=== PATIENT | female | born 1980 | race Caucasian/White ===

== ENCOUNTER 2019-05-05 10:04 | Emergency (ER) | payer OTHER ==
[~2019-05-05] VITALS: Ht 177.8 cm; Wt 76.8 kg
--- NOTE | 2019-05-05 10:44 | NUR ---
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 PT PLACED IN WC.
--- NOTE | 2019-05-05 11:10 | NUR ---
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
--- NOTE | 2019-05-05 11:41 | NUR ---
PT REAREND AT APPROX 10MPH LAST NIGHT. C/O POSTERIOR NECK PAIN RADIATES ACROSS SHOULDERS WITH BRAYDON HAND/FINGER TINGLING. C-COLLAR PLACED IN TRIAGE, PT ON GURNEY SUPINE AWAITING CERVICAL SPINE CT. CALL LIGHT W/I REACH. NAD NOTED
--- NOTE | 2019-05-05 11:55 | NUR ---
RECEIVED REPORT FROM YASMINE HANSON. ASSUMING CARE AT THIS TIME. PT GOING TO CT.
--- NOTE | 2019-05-05 12:16 | NUR ---
ALL RESULTS ARE BACK AT THIS TIME. CHART UP FOR RECHECK.
[2019-05-05 12:18] VITALS: BP 110/63
== END 2019-05-05 12:53 | disposition home or self-care (01) ==
LOC: ED 12:50
DX: S06.0X0A Concussion without loss of consciousness, initial encounter (principal); S16.1XXA Strain of muscle, fascia and tendon at neck level, initial encounter; V89.0XXA Person injured in unspecified motor-vehicle accident, nontraffic, initial encounter; Y93.89 Activity, other specified; Y92.488 Other paved roadways as the place of occurrence of the external cause; Y99.8 Other external cause status
CPT/HCPCS: 70450; 72125; 99284

== ENCOUNTER → 2020-04-24 | Outpatient (CLI) | payer OTHER ==
[~2020-04-24] MED LIST: OMEP40CA42 PO
== END | disposition home or self-care (01) ==
LOC: PETCFH 07:34
PROVIDERS: ATTEND Internal Medicine Hematology & Oncology
DX: C16.9 Malignant neoplasm of stomach, unspecified (principal); J34.1 Cyst and mucocele of nose and nasal sinus
CPT/HCPCS: 78815; A9552

== ENCOUNTER 2020-04-25 07:38 | Day surgery (SDC) | payer OTHER ==
[~2020-04-25] VITALS: Ht 177.8 cm; Wt 71.8 kg
[2020-04-25 08:23] VITALS: BP 106/71
[2020-04-25] MEDS ORDERED: VANCOMYCIN PMX 1GM/200ML 200 ML IV ONE (08:30)
[2020-04-25] MEDS ORDERED: PLEASE ENTER HEIGHT AND WEIGHT MC SCH (08:30)
[2020-04-25] MEDS ORDERED: SODIUM CHLORIDE 0.9% 1,000 ML IV SCH (08:30)
[2020-04-25] MEDS ORDERED: OMEP40CA42 PO (08:44)
[2020-04-25] MEDS ORDERED: LIDOCAINE 1%, 20ML ONE (09:49)
[2020-04-25] MEDS ORDERED: LIDOCAINE 1%, 10ML ONE (09:49)
[2020-04-25] MEDS ORDERED: MIDAZOLAM 1 MG/ML, 5ML ONE (09:50)
[2020-04-25] MEDS ORDERED: FENTANYL PF 100 MCG/2ML ONE (09:50)
[2020-04-25] MEDS ORDERED: NALOXONE 1 MG/ML, 2ML ONE (09:50)
[2020-04-25] MEDS ORDERED: FLUMAZENIL 0.1 MG/1 ML, 5ML ONE (09:50)
[2020-04-25] MEDS ORDERED: ACETAMINOPHEN 325 MG TABLET ONE (12:06)
[2020-04-25] MEDS ORDERED: ACETAMINOPHEN 325 MG TABLET PO ONE (12:30)
== END 2020-04-25 12:40 | disposition home or self-care (01) ==
LOC: OUT 07:38
PROVIDERS: ATTEND Internal Medicine Hematology & Oncology
DX: C16.9 Malignant neoplasm of stomach, unspecified (principal); Z88.0 Allergy status to penicillin
CPT/HCPCS: 36561; 76937; 77001; 99156; 99157; C1769; C1788; C1894; J1642; J2250; J3010; J3370; J7030; J2310

== ENCOUNTER → 2020-07-19 | Outpatient (CLI) | payer OTHER | END | disposition home or self-care (01) | LOC: STAR 10:35 | PROVIDERS: ATTEND Surgery | DX: Z20.822 Contact with and (suspected) exposure to COVID-19 (principal) | CPT/HCPCS: U0003 ==

== ENCOUNTER 2020-07-25 07:00 | Inpatient (IN) | payer OTHER ==
[~2020-07-25] VITALS: Ht 180.3 cm; Wt 78.9 kg
[2020-07-25] MEDS ORDERED: LIDOCAINE-MPF 1%, 2ML ONE (11:48)
[2020-07-25 11:49] VITALS: BP 104/72
[2020-07-25] MEDS ORDERED: BUPIVACAINE/PF 0.5% ONE (11:58)
[2020-07-25] MEDS ORDERED: EPINEPHRINE 1 MG/ML, 1ML ONE (11:58)
[2020-07-25] MEDS ORDERED: CHLORHEXIDINE 15 ML UDC ONE (12:06)
[2020-07-25] MEDS ORDERED: KETAMINE 10 MG/ML, 20ML ONE (12:07)
[2020-07-25 12:08] LABS: HCG UR SG 1.021 (1.003-1.030)
[2020-07-25] MEDS ORDERED: FENTANYL PF 100 MCG/2ML ONE ×2 (12:23→15:43)
[2020-07-25] MEDS ORDERED: MIDAZOLAM 1 MG/ML, 2ML ONE (12:23)
[2020-07-25] MEDS ORDERED: LIDOCAINE-MPF 1%, 2ML INFIL ONE (12:30)
[2020-07-25] MEDS ORDERED: LACTATED RINGERS 1,000 ML IV SCH (12:30)
[2020-07-25] MEDS ORDERED: CHLORHEXIDINE 15 ML UDC PO ONE (12:30)
[2020-07-25] MEDS ORDERED: ROCURONIUM 10 MG/ML,10ML ONE (12:31)
[2020-07-25] MEDS ORDERED: CEFAZOLIN 1,000 MG ONE (12:31)
[2020-07-25] MEDS ORDERED: PROPOFOL 10 MG/ML, 20ML ONE (12:31)
[2020-07-25] MEDS ORDERED: ONDANSETRON 2MG/ML, 2ML ONE (12:31)
[2020-07-25] MEDS ORDERED: NEOSTIGMINE 1 MG/ML, 10ML ONE (12:31)
[2020-07-25] MEDS ORDERED: DEXAMETHASONE 4 MG/ML, 1ML ONE (12:31)
[2020-07-25] MEDS ORDERED: PHENYLEPHRINE 10 MG/ML ONE (12:31)
[2020-07-25] MEDS ORDERED: GLYCOPYRROLATE 0.2MG/1ML, 5ML ONE (12:31)
[2020-07-25] MEDS ORDERED: SUCCINYLCHOLINE 20 MG/ML, 10ML ONE (12:31)
[2020-07-25] MEDS ORDERED: HYDROmorphone 1 MG/ML, 1ML INJ ONE ×3 (12:45→15:55)
[2020-07-25] MEDS ORDERED: LABETALOL 5MG/ML, 20ML IV PRN (14:30)
[2020-07-25] MEDS ORDERED: DIPHENHYDRAMINE 50 MG/ML, 1ML IVPush PRN (14:30)
[2020-07-25] MEDS ORDERED: ONDANSETRON 2MG/ML, 2ML IVPush PRN ×2 (14:30→16:00)
[2020-07-25] MEDS ORDERED: hydrALAzine 20 MG/ML, 1ML IV PRN ×2 (14:30→16:00)
[2020-07-25] MEDS ORDERED: METOPROLOL 1 MG/ML, 5ML IV PRN (14:30)
[2020-07-25] MEDS ORDERED: PROMETHAZINE 25 MG/ML, 1ML IVPush PRN (14:30)
[2020-07-25] MEDS ORDERED: OXYcodone 5 MG/5 ML ORAL.SOL UDC PO PRN (14:30)
[2020-07-25] MEDS ORDERED: ALBUTEROL SULFATE 2.5 MG/3 ML NPPB PRN (14:30)
[2020-07-25] MEDS ORDERED: FENTANYL PF 100 MCG/2ML IV PRN (14:30)
[2020-07-25] MEDS ORDERED: EPHEDRINE 50 MG/ML, 1ML IVPush PRN (14:30)
[2020-07-25] MEDS ORDERED: METOCLOPRAMIDE 5 MG/ML, 2ML IVPush PRN (14:30)
[2020-07-25] MEDS ORDERED: ACETAMINOPHEN 325 MG TABLET PO PRN (14:30)
[2020-07-25] MEDS ORDERED: MEPERIDINE/PF 25MG/0.5ML IVPush PRN (14:30)
[2020-07-25] MEDS ORDERED: DIAZEPAM 5 MG/ML, 2ML IVPush PRN (14:30)
[2020-07-25] MEDS ORDERED: HALOPERIDOL 5 MG/ML IV PRN (14:30)
[2020-07-25] MEDS ORDERED: OXYcodone 5 MG/5 ML ORAL.SOL UDC ONE (15:22)
[2020-07-25] MEDS: HYDROmorphone 1 MG/ML, 1ML INJ IVPush PRN ×4 (15:25→16:05)
[2020-07-25] MEDS ORDERED: ACETAMINOPHEN 650 MG/20.3 ML UDC ONE (15:54)
[2020-07-25] MEDS ORDERED: KETOROLAC 30 MG/1 ML ONE (15:55)
[2020-07-25] MEDS ORDERED: HYDROmorphone PCA 30 MG/30 ML IV PRN (16:00)
[2020-07-25] MEDS ORDERED: LORazepam 2 MG/ML, 1ML IV PRN (16:00)
[2020-07-25] MEDS ORDERED: ACETAMINOPHEN 650 MG/20.3 ML UDC JT PRN (16:00)
[2020-07-25] MEDS ORDERED: DIPHENHYDRAMINE 50 MG/ML, 1ML IV PRN (16:00)
[2020-07-25] MEDS ORDERED: SODIUM CHLORIDE 0.9%, 500ML IVBOLUS PRN (16:00)
[2020-07-25] MEDS ORDERED: ENALAPRILAT 1.25 MG/ML, 2ML IV PRN (16:00)
[2020-07-25] MEDS: KETOROLAC 30 MG/1 ML IV PRN (16:20)
[2020-07-25 17:35] VITALS: BP 106/69
[2020-07-25 19:25] VITALS: BP 110/73
[2020-07-25] MEDS: SODIUM CHLORIDE 0.9% 1,000 ML IV SCH (19:56)
[2020-07-25] MEDS: CEFAZOLIN PMX 1GM/50ML 50 ML IVPB SCH (20:27)
[2020-07-26 03:55] VITALS: BP 106/66
[2020-07-26] MEDS: KETOROLAC 30 MG/1 ML IV PRN ×2 (04:03→23:45)
[2020-07-26] MEDS: CEFAZOLIN PMX 1GM/50ML 50 ML IVPB SCH (04:28)
[2020-07-26 05:37] LABS: BASOPHILS % (AUTO) 0 % (0-1); EOSINOPHILS % (AUTO) 0 % (1-7); LYMPHOCYTES % (AUTO) 5 % (22-44); MEAN CORPUSCULAR HEMOGLOBIN 29.3 pg (27.0-34.8); MEAN CORPUSCULAR HGB CONC 32.6 g/dL (32.4-35.8); MONOCYTES % (AUTO) 7 % (2-9); NEUTROPHILS % (AUTO) 88 % (42-75); PLATELET COUNT 231 x10^3/uL (130-400); RED BLOOD COUNT 2.99 x10^6/uL (3.82-5.3); RED CELL DISTRIBUTION WIDTH 18.5 % (9.6-15.2)
[2020-07-26 05:43] LABS: MD NO
[2020-07-26 05:46] LABS: ALANINE AMINOTRANSFERASE 57 U/L (12-78); ANION GAP 6 mmol/L (5-15); CALCIUM 8.3 mg/dL (8.5-10.1); CHLORIDE 106 mmol/L (98-107); CREATININE 0.68 mg/dL (0.55-1.02)
[2020-07-26 05:48] LABS: ALKALINE PHOSPHATASE 65 U/L (45-117); BILIRUBIN,TOTAL 0.3 mg/dL (0.2-1.0)
[2020-07-26] MEDS: SODIUM CHLORIDE 0.9% 1,000 ML IV SCH ×2 (06:30→16:28)
[2020-07-26 07:23] VITALS: BP 99/63
--- NOTE | 2020-07-26 12:07 | NUR ---
TF RECOMMENDATION: if no PO, goal is Jevity 1.2 @ 70 ml/hr Recommend start at 10 ml/hr and increase 10 ml/hr q 10-12 hours as tolerated Addendum: 07/26/20 at [address] Amended: Links added.
[2020-07-26 13:10] VITALS: BP 96/60
[2020-07-26] MEDS: HEPARIN 5,000 UNITS/ML, 1ML SQ SCH (16:39)
[2020-07-26 20:49] VITALS: BP 108/71
[2020-07-27] MEDS: SODIUM CHLORIDE 0.9% 1,000 ML IV SCH ×3 (01:25→21:59)
[2020-07-27] MEDS: HEPARIN 5,000 UNITS/ML, 1ML SQ SCH ×4 (01:25→23:43)
[2020-07-27 03:15] VITALS: BP 98/62
[2020-07-27] MEDS: KETOROLAC 30 MG/1 ML IV PRN ×4 (05:45→23:43)
[2020-07-27 07:07] VITALS: BP 95/58
[2020-07-27] MEDS ORDERED: OXYcodone 5 MG/5 ML ORAL.SOL UDC JT PRN (11:30)
[2020-07-27] MEDS ORDERED: MORPHINE SULFATE 4 MG/ML, 1ML IVPush PRN (12:00)
[2020-07-27] MEDS: ACETAMINOPHEN 650 MG/20.3 ML UDC JT SCH ×3 (12:16→23:42)
[2020-07-27 13:17] VITALS: BP 103/65
[2020-07-27 20:10] VITALS: BP 98/66
[2020-07-28 01:02] VITALS: BP 98/64
[2020-07-28] MEDS: ACETAMINOPHEN 650 MG/20.3 ML UDC JT SCH ×3 (06:23→18:23)
[2020-07-28] MEDS: KETOROLAC 30 MG/1 ML IV PRN ×3 (06:23→19:48)
[2020-07-28 06:26] LABS: BASOPHILS % (AUTO) 1 % (0-1); EOSINOPHILS % (AUTO) 4 % (1-7); LYMPHOCYTES % (AUTO) 29 % (22-44); MEAN CORPUSCULAR HEMOGLOBIN 29.5 pg (27.0-34.8); MEAN CORPUSCULAR HGB CONC 32.8 g/dL (32.4-35.8); MEAN PLATELET VOLUME 8.6 fL (7.4-10.4); MONOCYTES % (AUTO) 9 % (2-9); NEUTROPHILS % (AUTO) 57 % (42-75); PLATELET COUNT 189 x10^3/uL (130-400); RED BLOOD COUNT 2.64 x10^6/uL (3.82-5.3); RED CELL DISTRIBUTION WIDTH 18.5 % (9.6-15.2)
[2020-07-28 06:28] LABS: MD NO
[2020-07-28 06:35] LABS: ANION GAP 3 mmol/L (5-15); CALCIUM 7.7 mg/dL (8.5-10.1); CHLORIDE 111 mmol/L (98-107); CREATININE 0.42 mg/dL (0.55-1.02)
[2020-07-28 07:19] VITALS: BP 101/67
[2020-07-28] MEDS: NS + 20MEQ KCL 1,000 ML IV SCH ×3 (08:30→23:29)
[2020-07-28] MEDS: HEPARIN 5,000 UNITS/ML, 1ML SQ SCH ×3 (08:30→23:48)
[2020-07-28 14:16] VITALS: BP 103/70
[2020-07-28] MEDS ORDERED: SODIUM CHLORIDE 0.9% 1,000 ML IV SCH (16:00)
[2020-07-28 20:55] VITALS: BP 110/72
[2020-07-29] MEDS: ACETAMINOPHEN 650 MG/20.3 ML UDC JT SCH ×2 (00:17→06:30)
[2020-07-29 01:29] VITALS: BP 101/63
[2020-07-29] MEDS: KETOROLAC 30 MG/1 ML IV PRN (05:40)
[2020-07-29 06:11] LABS: CALCIUM 7.6 mg/dL (8.5-10.1); CREATININE 0.42 mg/dL (0.55-1.02)
[2020-07-29 06:22] LABS: ANION GAP 4 mmol/L (5-15); CHLORIDE 113 mmol/L (98-107)
[2020-07-29 06:30] LABS: BASOPHILS % (AUTO) 0 % (0-1); EOSINOPHILS % (AUTO) 2 % (1-7); LYMPHOCYTES % (AUTO) 15 % (22-44); MEAN CORPUSCULAR HEMOGLOBIN 29.1 pg (27.0-34.8); MEAN CORPUSCULAR HGB CONC 32.7 g/dL (32.4-35.8); MEAN PLATELET VOLUME 9.1 fL (7.4-10.4); MONOCYTES % (AUTO) 7 % (2-9); NEUTROPHILS % (AUTO) 76 % (42-75); PLATELET COUNT 207 x10^3/uL (130-400); RED BLOOD COUNT 2.72 x10^6/uL (3.82-5.3); RED CELL DISTRIBUTION WIDTH 18.3 % (9.6-15.2)
[2020-07-29 06:38] LABS: MD NO
[2020-07-29 07:22] VITALS: BP 101/65
[2020-07-29] MEDS: HEPARIN 5,000 UNITS/ML, 1ML SQ SCH ×2 (08:05→16:20)
[2020-07-29] MEDS: NS + 20MEQ KCL 1,000 ML IV SCH ×2 (08:54→16:56)
[2020-07-29] MEDS: ACETAMINOPHEN 100 ML IVPB SCH ×3 (10:18→23:30)
[2020-07-29 12:52] VITALS: BP 105/68
[2020-07-29 18:42] VITALS: BP 105/71
[2020-07-30] MEDS: HEPARIN 5,000 UNITS/ML, 1ML SQ SCH ×3 (00:04→16:00)
[2020-07-30 00:28] VITALS: BP 106/70
[2020-07-30] MEDS: NS + 20MEQ KCL 1,000 ML IV SCH ×2 (01:01→10:00)
[2020-07-30 05:54] LABS: BASOPHILS % (AUTO) 1 % (0-1); EOSINOPHILS % (AUTO) 5 % (1-7); LYMPHOCYTES % (AUTO) 27 % (22-44); MEAN CORPUSCULAR HEMOGLOBIN 29.3 pg (27.0-34.8); MEAN PLATELET VOLUME 8.6 fL (7.4-10.4); MONOCYTES % (AUTO) 7 % (2-9); NEUTROPHILS % (AUTO) 60 % (42-75); PLATELET COUNT 210 x10^3/uL (130-400); RED BLOOD COUNT 2.59 x10^6/uL (3.82-5.3); RED CELL DISTRIBUTION WIDTH 18.6 % (9.6-15.2)
[2020-07-30 05:55] LABS: ANION GAP 4 mmol/L (5-15); CALCIUM 7.7 mg/dL (8.5-10.1); CHLORIDE 114 mmol/L (98-107); CREATININE 0.35 mg/dL (0.55-1.02)
[2020-07-30] MEDS: ACETAMINOPHEN 100 ML IVPB SCH (05:55)
[2020-07-30 05:59] LABS: MD NO
[2020-07-30 06:55] VITALS: BP 113/74
[2020-07-30] MEDS: ACETAMINOPHEN 650 MG/20.3 ML UDC PO SCH ×2 (12:15→17:55)
[2020-07-30] MEDS: PANTOPRAZOLE GRAN. PKT 40 MG PO SCH (12:15)
[2020-07-30] MEDS: IBUPROFEN 100 MG/5 ML UDC PO SCH ×2 (13:13→16:29)
[2020-07-30 14:30] VITALS: BP 109/71
[2020-07-30] MEDS ORDERED: OXYcodone 5 MG/5 ML ORAL.SOL UDC PO PRN (14:30)
--- NOTE | 2020-07-30 15:00 | NUR ---
TF goal: Osmolite 1.2 goal: 70 ml/hr Addendum: 07/30/20 at [address] Amended: Links added.
[2020-07-30 19:11] VITALS: BP 98/62
[2020-07-31] MEDS: HEPARIN 5,000 UNITS/ML, 1ML SQ SCH ×3 (00:04→16:00)
[2020-07-31 02:34] VITALS: BP 100/54
[2020-07-31] MEDS: ACETAMINOPHEN 650 MG/20.3 ML UDC PO SCH ×4 (05:57→13:55)
[2020-07-31] MEDS: PANTOPRAZOLE GRAN. PKT 40 MG PO SCH (05:58)
[2020-07-31 06:50] VITALS: BP 96/58
[2020-07-31] MEDS: IBUPROFEN 100 MG/5 ML UDC PO SCH ×3 (08:00→17:00)
[2020-07-31] MEDS ORDERED: OXYC5SOL8 PO (09:32)
[2020-07-31] MEDS ORDERED: IBUP100O26 PO (09:32)
[2020-07-31] MEDS ORDERED: ACET650S21 PO (09:32)
[2020-07-31 12:05] VITALS: BP 120/73
== END 2020-07-31 17:14 | disposition home health service (06) | DRG 328 ==
LOC: ORIP 11:17 → 4NE 17:34 → 4NW 07-29 11:01
PROVIDERS: ADMIT Surgery; ATTEND Surgery
PROC: 0DT60ZZ Resection of Stomach, Open Approach (ICD-10-PCS; principal; 2020-07-25 13:00)
PROC: 07BB0ZZ Excision of Mesenteric Lymphatic, Open Approach (ICD-10-PCS; 2020-07-25 13:00)
PROC: 0DHA0UZ Insertion of Feeding Device into Jejunum, Open Approach (ICD-10-PCS; 2020-07-25 13:00)
DX: C16.9 Malignant neoplasm of stomach, unspecified (principal); Z90.3 Acquired absence of stomach [part of]; Z85.028 Personal history of other malignant neoplasm of stomach; Z93.4 Other artificial openings of gastrointestinal tract status; Z88.0 Allergy status to penicillin; Z88.1 Allergy status to other antibiotic agents
CPT/HCPCS: 36415; 74220; J3490; S0020; 80048; 80053; 81025; 85025; 86850; 86900; 88305; 88309; B4087; C1729; G0378; J0131; J0171; J0690; J1100; J1170; J1644; J1885; J2250; J2405; J2704; J2710; J3010; J3480; C1765; J0330; J1200; J2370; J7030; J7120

== ENCOUNTER 2020-09-17 17:25 | Emergency (ER) | payer OTHER ==
[~2020-09-17] VITALS: Ht 180.3 cm; Wt 64.0 kg
[~2020-09-17 17:25] MED LIST changes: +ACET650S21 PO; +IBUP100O26 PO; +OXYC5SOL8 PO
[2020-09-17] MEDS ORDERED: ONDANSETRON 2MG/ML, 2ML IVPush ONE (18:00)
[2020-09-17] MEDS ORDERED: SODIUM CHLORIDE 0.9% 1,000ML IVBOLUS ONE (18:00)
[2020-09-17] MEDS ORDERED: ONDANSETRON 2MG/ML, 2ML ONE (18:13)
--- NOTE | 2020-09-17 19:12 | NUR ---
PT SITTING UP IN BED, ED MD IN TO ASSESS PT. IV PORT HAS BEEN ACCESSED. LABS ARE DRAWN, LABELLED AND AT BEDSIDE. PT MEDICATED PER EMAR. REPORT TO VALENTIN BENITEZ.
[2020-09-17 19:14] LABS: MEAN CORPUSCULAR HEMOGLOBIN 26.7 pg (27.0-34.8); MEAN CORPUSCULAR HGB CONC 31.9 g/dL (32.4-35.8); MEAN PLATELET VOLUME 9.3 fL (7.4-10.4); PLATELET COUNT 192 x10^3/uL (130-400); RED BLOOD COUNT 2.84 x10^6/uL (3.82-5.3); RED CELL DISTRIBUTION WIDTH 16.5 % (9.6-15.2)
[2020-09-17 19:20] LABS: ALBUMIN 3.8 g/dL (3.4-5.0); ANION GAP 6 mmol/L (5-15); CALCIUM 8.4 mg/dL (8.5-10.1); CHLORIDE 108 mmol/L (98-107)
[2020-09-17 19:25] LABS: ALANINE AMINOTRANSFERASE 31 U/L (12-78); ALKALINE PHOSPHATASE 78 U/L (45-117); BILIRUBIN,TOTAL 0.3 mg/dL (0.2-1.0); CREATININE 0.47 mg/dL (0.55-1.02); TOTAL PROTEIN 7.1 g/dL (6.4-8.2)
--- NOTE | 2020-09-17 19:42 | NUR ---
PATIENT TO CT SCAN.
[2020-09-17 19:43] LABS: MD YES
[2020-09-17 19:52] LABS: BASOS#(MANUAL) 0.04 x10^3/uL (0-0.1); BASOS% (MANUAL) 2 % (0-1); EOS#(MANUAL) 0.06 x10^3/uL (0.0-0.4); EOS% (MANUAL) 3 % (1-7); LYMPH#(MANUAL) 1.49 x10^3/uL (1-3.4); LYMPHS% (MANUAL) 71 % (22-44); SEGS% (MANUAL) 24 % (42-75)
[2020-09-17 19:54] LABS: ANISOCYTOSIS 1+; OVALOCYTES 1+; TEAR DROPS 1+
[2020-09-17 19:55] LABS: <PLATELET ESTIMATE> ADEQUATE; <PLT MORPHOLOGY> NORMAL PLT MORPH
--- NOTE | 2020-09-17 20:02 | NUR ---
BACK FROM CT SCAN.
[2020-09-17] MEDS ORDERED: OMNIPAQUE 350 MG/ML, 100ML BOTTLE ONE (20:06)
--- NOTE | 2020-09-17 21:07 | NUR ---
ERP AT BEDSIDE FOR RE-EVALUATION.
--- NOTE | 2020-09-17 21:43 | NUR ---
PATIENT DISCHARGED WITH PRESCRIPTIONS AND INSTRUCTION. VERBALIZED UNDERSTANDING.
[2020-09-17 21:45] VITALS: BP 118/65
== END 2020-09-17 21:51 | disposition home or self-care (01) ==
LOC: ED 21:41
DX: D70.1 Agranulocytosis secondary to cancer chemotherapy (principal); C16.9 Malignant neoplasm of stomach, unspecified; R10.31 Right lower quadrant pain
CPT/HCPCS: 36415; 74177; 80053; 84703; 85025; 96361; 96374; 99285; J2405; J7030; Q9967

== ENCOUNTER 2020-09-20 17:58 | Inpatient (IN) | payer OTHER ==
[~2020-09-20] VITALS: Ht 177.8 cm; Wt 67.5 kg
[2020-09-20] MEDS ORDERED: GABA600T7 PO (18:23)
--- NOTE | 2020-09-20 18:23 | NUR ---
PT AMBULATORY TO ROOM FROM TRIAGE. PT CHANGED INTO GOWN. MONITORS IN PLACE. NADN. CALL LIGHT WITHIN REACH
--- NOTE | 2020-09-20 18:48 | NUR ---
XRAY AT BS
--- NOTE | 2020-09-20 18:52 | NUR ---
REPORT TO VALENTIN SHEPHERD
--- NOTE | 2020-09-20 18:58 | NUR ---
first contact, pt laying in bed, lab in room drawing blood, pt a/ox4, all needs in reach, call light in reach, NAD, pt asked to provide urine sample when she is able
[2020-09-20 19:10] LABS: MEAN CORPUSCULAR HEMOGLOBIN 26.8 pg (27.0-34.8); MEAN CORPUSCULAR HGB CONC 32.3 g/dL (32.4-35.8); MEAN PLATELET VOLUME 8.9 fL (7.4-10.4); PLATELET COUNT 177 x10^3/uL (130-400); RED BLOOD COUNT 3.17 x10^6/uL (3.82-5.3); RED CELL DISTRIBUTION WIDTH 16.7 % (9.6-15.2)
[2020-09-20 19:22] LABS: ALANINE AMINOTRANSFERASE 23 U/L (12-78); ALBUMIN 3.6 g/dL (3.4-5.0); ANION GAP 9 mmol/L (5-15); CALCIUM 8.6 mg/dL (8.5-10.1); CHLORIDE 107 mmol/L (98-107); CREATININE 0.61 mg/dL (0.55-1.02)
[2020-09-20 19:23] LABS: ALKALINE PHOSPHATASE 90 U/L (45-117); BILIRUBIN,TOTAL 0.4 mg/dL (0.2-1.0); TOTAL PROTEIN 7.1 g/dL (6.4-8.2)
[2020-09-20 19:27] LABS: MICROSCOPIC AUTO
[2020-09-20 20:20] LABS: MD YES
[2020-09-20] MEDS ORDERED: CEFTRIAXONE 1,000 MG ONE (20:25)
[2020-09-20] MEDS ORDERED: LIDOCAINE-MPF 1%, 5ML ONE (20:26)
[2020-09-20 20:27] LABS: SEGS% (MANUAL) 5 % (42-75)
[2020-09-20 20:28] LABS: BAND#(MANUAL) 0.02 x10^3/uL; BANDS%(MANUAL) 1 % (0-7); BASOS#(MANUAL) 0.02 x10^3/uL (0-0.1); BASOS% (MANUAL) 1 % (0-1); EOS#(MANUAL) 0.04 x10^3/uL (0.0-0.4); EOS% (MANUAL) 2 % (1-7); LYMPHS% (MANUAL) 50 % (22-44); MONOS% (MANUAL) 40 % (2-9); REACTIVE LYMPHS # (MANUAL) 0.02 x10^3/uL (0-0); REACTIVE LYMPHS % (MANUAL) 1 % (0-0)
[2020-09-20] MEDS ORDERED: CEFTRIAXONE 1,000 MG IM ONE (20:30)
[2020-09-20 20:33] LABS: OVALOCYTES 1+; POLYCHROMASIA 1+
[2020-09-20 20:35] LABS: HYPOCHROMIA 1+; MICROCYTOSIS 1+; TEAR DROPS 1+
[2020-09-20 20:36] LABS: <PLATELET ESTIMATE> ADEQUATE; <PLT MORPHOLOGY> NORMAL PLT MORPH; SCHISTOCYTES 1+
--- NOTE | 2020-09-20 20:52 | NUR ---
pt laying in bed, stated to hold off on IM ABX until MD speaks with Oncology, pt NAD, all needs in reach, call light in reach
[2020-09-20] MEDS ORDERED: MEROPENEM 1 GM in SODIUM CHLORIDE 0.9% 100 ML IV ONE (21:30)
[2020-09-20 22:30] VITALS: BP 137/78
[2020-09-20] MEDS ORDERED: DOCUSATE 100 MG CAPSULE PO PRN (22:30)
[2020-09-20] MEDS ORDERED: MELATONIN 5 MG TABLET PO PRN (22:30)
[2020-09-20] MEDS ORDERED: LIDODERM 5% PATCH TD PRN (22:30)
[2020-09-20] MEDS ORDERED: ACETAMINOPHEN 325 MG TABLET PO PRN (22:30)
[2020-09-20] MEDS ORDERED: ONDA4TAB7 PO (22:42)
[2020-09-21 01:54] VITALS: BP 115/72
[2020-09-21] MEDS ORDERED: MEROPENEM 1 GM in SODIUM CHLORIDE 0.9% 100 ML IV SCH (05:30)
[2020-09-21 05:34] LABS: MEAN CORPUSCULAR HEMOGLOBIN 27.2 pg (27.0-34.8); MEAN CORPUSCULAR HGB CONC 32.9 g/dL (32.4-35.8); MEAN PLATELET VOLUME 9.1 fL (7.4-10.4); PLATELET COUNT 161 x10^3/uL (130-400); RED BLOOD COUNT 3.01 x10^6/uL (3.82-5.3); RED CELL DISTRIBUTION WIDTH 16.9 % (9.6-15.2)
[2020-09-21 05:43] LABS: ANION GAP 7 mmol/L (5-15); CALCIUM 8.4 mg/dL (8.5-10.1); CHLORIDE 107 mmol/L (98-107)
[2020-09-21 06:02] LABS: MD YES
[2020-09-21 06:07] LABS: BAND#(MANUAL) 0.19 x10^3/uL; BANDS%(MANUAL) 7 % (0-7); SEG#(MANUAL) 0.08 x10^3/uL (1.8-6.8); SEGS% (MANUAL) 3 % (42-75)
[2020-09-21 06:08] LABS: LYMPH#(MANUAL) 1.81 x10^3/uL (1-3.4); LYMPHS% (MANUAL) 67 % (22-44); MONOS#(MANUAL) 0.57 x10^3/uL (0.3-2.7); MONOS% (MANUAL) 21 % (2-9); OTHER CELLS # (MANUAL) 0.03 x10^3/uL (0-0); REACTIVE LYMPHS # (MANUAL) 0.03 x10^3/uL (0-0); REACTIVE LYMPHS % (MANUAL) 1 % (0-0)
[2020-09-21 06:13] LABS: OTHER CELLS % (MANUAL) 1 % (0-0)
[2020-09-21 06:15] LABS: ANISOCYTOSIS 1+
[2020-09-21 06:16] LABS: <PLATELET ESTIMATE> ADEQUATE; <PLT MORPHOLOGY> NORMAL PLT MORPH; HYPOCHROMIA 1+; MICROCYTOSIS 1+; OVALOCYTES 1+; POLYCHROMASIA 1+; SCHISTOCYTES 1+; TEAR DROPS 1+
[2020-09-21 07:31] VITALS: BP 111/69
== END 2020-09-21 12:30 | disposition left against medical advice (07) | DRG 690 ==
LOC: ED 22:12 → EDIP 22:22 → 3N 22:45
PROVIDERS: ADMIT Internal Medicine; ATTEND Hospitalist
DX: N39.0 Urinary tract infection, site not specified (principal); D64.81 Anemia due to antineoplastic chemotherapy; T45.1X5A Adverse effect of antineoplastic and immunosuppressive drugs, initial encounter; Z90.3 Acquired absence of stomach [part of]; Z93.4 Other artificial openings of gastrointestinal tract status; Y92.89 Other specified places as the place of occurrence of the external cause; Z85.028 Personal history of other malignant neoplasm of stomach; R50.81 Fever presenting with conditions classified elsewhere; D70.9 Neutropenia, unspecified; Z53.29 Procedure and treatment not carried out because of patient's decision for other reasons
CPT/HCPCS: 36415; 71045; 80048; 80053; 81001; 83605; 84145; 85025; 87040; 87086; 96374; 99285; G0378; J2185

== ENCOUNTER 2020-12-20 16:27 | Outpatient (CLI) | payer OTHER ==
[~2020-12-20 16:27] MED LIST changes: +GABA600T7 PO; -OMEP40CA42 PO; +OMEP40CA8 PO; +ONDA4TAB7 PO
== END 2020-12-20 23:59 | disposition home or self-care (01) ==
LOC: RAD 16:27
PROVIDERS: ATTEND Physician Assistant
DX: N13.30 Unspecified hydronephrosis (principal); N13.4 Hydroureter; R10.9 Unspecified abdominal pain
CPT/HCPCS: 74176

== ENCOUNTER 2020-12-21 16:56 | Observation (INO) | payer OTHER ==
[~2020-12-21] VITALS: Ht 180.3 cm; Wt 60.2 kg
--- NOTE | 2020-12-21 17:47 | NUR ---
URINE COLLECTED AND SENT TO LAB.
[2020-12-21 18:06] LABS: MICROSCOPIC INDICATED
--- NOTE | 2020-12-21 20:06 | NUR ---
PT TO ROOM 35 W/ C/O ABD PAIN R SIDE RADIATING TO BACK. PT STATES HX STOMACH CANCER DX IN FEBRUARY. PT ALSO STATES THE ABDOMINAL PAIN GOT WORSE ON THURSDAY. PT RESTING ON GURNEY. NADN. MONITORS APPLIED. WARM BLANKET PROVIDED. CALL LIGHT IN REACH. ERP DR. BARRIOS AT BEDSIDE FOR EVAL.
[2020-12-21] MEDS ORDERED: ONDANSETRON 2MG/ML, 2ML IVPush ONE ×2 (20:30→23:00)
[2020-12-21] MEDS ORDERED: SODIUM CHLORIDE 0.9% 1,000 ML IV ONE (20:30)
[2020-12-21] MEDS ORDERED: SODIUM CHLORIDE FLUSH 10ML SYR IVF ONE (20:30)
[2020-12-21] MEDS ORDERED: MORPHINE SULFATE 4 MG/ML, 1ML IVPush PRN (20:30)
--- NOTE | 2020-12-21 20:46 | NUR ---
PT RESTING ON GURNEY. NADN. VICENTE.
[2020-12-21] MEDS ORDERED: ONDANSETRON 2MG/ML, 2ML ONE ×2 (20:57→22:41)
[2020-12-21] MEDS ORDERED: MORPHINE SULFATE 4 MG/ML, 1ML ONE (20:58)
[2020-12-21 21:09] LABS: BASOPHILS % (AUTO) 0 % (0-1); EOSINOPHILS % (AUTO) 2 % (1-7); LYMPHOCYTES % (AUTO) 14 % (22-44); MEAN CORPUSCULAR HEMOGLOBIN 31.6 pg (27.0-34.8); MEAN CORPUSCULAR HGB CONC 32.7 g/dL (32.4-35.8); MEAN PLATELET VOLUME 9.7 fL (7.4-10.4); MONOCYTES % (AUTO) 10 % (2-9); NEUTROPHILS % (AUTO) 74 % (42-75); PLATELET COUNT 190 x10^3/uL (130-400); RED BLOOD COUNT 3.81 x10^6/uL (3.82-5.3)
[2020-12-21 21:19] LABS: ANION GAP 7 mmol/L (5-15); CALCIUM 9.3 mg/dL (8.5-10.1); CHLORIDE 106 mmol/L (98-107); CREATININE 1.06 mg/dL (0.55-1.02)
--- NOTE | 2020-12-21 21:20 | NUR ---
REPORT FROM NAY HANSON
--- NOTE | 2020-12-21 21:21 | NUR ---
REPORT GIVEN TO GINNY, RECEIVING RN.
[2020-12-21 21:24] LABS: ALANINE AMINOTRANSFERASE 132 U/L (12-78); ALKALINE PHOSPHATASE 102 U/L (45-117); BILIRUBIN,TOTAL 0.7 mg/dL (0.2-1.0)
[2020-12-21] MEDS ORDERED: HYDROmorphone 2 MG/ML, 1ML ONE (21:58)
[2020-12-21] MEDS ORDERED: HYDROmorphone 1 MG/ML, 1ML INJ IV ONE (22:00)
--- NOTE | 2020-12-21 22:01 | NUR ---
ADMINISTERED 1MG DILUADID IVP PER MAR, 1MG WASTED IN OMNICELL WITH VALENTIN PEREZ. PATIENT TOLERATED MEDICATION DOSAGE WELL. VITAL SIGNS STABLE. PATIENT GIVEN EDUCATION REGARDING ASSISTANCE AFTER PAIN MEDICATION ADMINISTRATION, VERBALIZED UNDERSTANDING. NO NOTED ADDITIONAL NEEDS AT THIS TIME. WILL CONTINUE TO MONITOR.
--- NOTE | 2020-12-21 22:10 | NUR ---
CT CALLED, WILL COME GIVE PT CONTRAST NOW. DR BARRIOS AWARE
--- NOTE | 2020-12-21 22:35 | NUR ---
PT REPORTING FEELING NAUSOUS WHILE DRINKING CONTRAST. DR BARRIOS AWARE, ORDERS PLACED FOR ZOFRAN.
[2020-12-21] MEDS ORDERED: OMNIPAQUE 350 MG/ML, 100ML BOTTLE ONE (23:00)
--- NOTE | 2020-12-21 23:48 | NUR ---
PT BACK FROM CT, RESTING COMFORTABLY, REQUESTING LIGHTS TO BE OFF.
--- NOTE | 2020-12-22 00:30 | NUR ---
dr merritt at bedside for recheck.
[2020-12-22] MEDS ORDERED: MORPHINE SULFATE 4 MG/ML, 1ML IVPush PRN (01:00)
[2020-12-22] MEDS ORDERED: ONDANSETRON 2MG/ML, 2ML IVPush PRN ×3 (01:00→13:30)
[2020-12-22] MEDS ORDERED: SODIUM CHLORIDE 0.9% 1,000 ML IV ONE (01:00)
--- NOTE | 2020-12-22 01:04 | NUR ---
RAPID COVID SWAB WALKED TO LAB
[2020-12-22 02:19] VITALS: BP 137/85
[2020-12-22] MEDS: SODIUM CHLORIDE 0.9% 1,000 ML IV SCH ×2 (02:25→10:06)
[2020-12-22] MEDS ORDERED: ACETAMINOPHEN 325 MG TABLET PO PRN (02:30)
[2020-12-22] MEDS ORDERED: CEFTRIAXONE 1,000 MG in DEXTROSE 5% 50 ML IVPB SCH (02:30)
[2020-12-22] MEDS ORDERED: PROMETHAZINE 25 MG/ML, 1ML IM PRN (02:30)
[2020-12-22] MEDS ORDERED: TRAZODONE 50MG TABLET PO PRN (02:30)
[2020-12-22] MEDS ORDERED: HYDROmorphone 2 MG/ML, 1ML IVPush PRN (02:30)
[2020-12-22 07:29] VITALS: BP 147/87
[2020-12-22 11:01] LABS: HCG UR SG 1.031 (1.003-1.030)
[2020-12-22 12:05] VITALS: BP 116/72
[2020-12-22] MEDS ORDERED: FENTANYL PF 100 MCG/2ML ONE (12:55)
[2020-12-22] MEDS ORDERED: MIDAZOLAM 1 MG/ML, 2ML ONE (12:55)
[2020-12-22] MEDS ORDERED: ROCURONIUM 10 MG/ML,10ML ONE (12:58)
[2020-12-22] MEDS ORDERED: ONDANSETRON 2MG/ML, 2ML ONE (12:58)
[2020-12-22] MEDS ORDERED: SUCCINYLCHOLINE 20 MG/ML, 10ML ONE (12:58)
[2020-12-22] MEDS ORDERED: CEFAZOLIN 1,000 MG ONE (12:58)
[2020-12-22] MEDS ORDERED: PROPOFOL 10 MG/ML, 20ML ONE (12:58)
[2020-12-22] MEDS ORDERED: OMNIPAQUE 350 MG/ML, 50 ML BOTTLE ONE (13:16)
[2020-12-22] MEDS ORDERED: PHEN-418 PO (13:24)
[2020-12-22] MEDS ORDERED: DIAZEPAM 5 MG/ML, 2ML IV PRN ×2 (13:30)
[2020-12-22] MEDS ORDERED: KETOROLAC 30 MG/1 ML IV PRN (13:30)
[2020-12-22] MEDS ORDERED: MEPERIDINE/PF 25MG/0.5ML IVPush PRN (13:30)
[2020-12-22] MEDS ORDERED: OXYcodone 5 MG/5 ML ORAL.SOL UDC PO PRN (13:30)
[2020-12-22] MEDS ORDERED: ALBUTEROL SULFATE 2.5 MG/3 ML NPPB PRN (13:30)
[2020-12-22] MEDS ORDERED: FENTANYL PF 100 MCG/2ML IV PRN (13:30)
[2020-12-22] MEDS ORDERED: PROMETHAZINE 25 MG/ML, 1ML IV PRN (13:30)
[2020-12-22] MEDS ORDERED: hydrALAzine 20 MG/ML, 1ML IV PRN (13:30)
[2020-12-22] MEDS ORDERED: HYDROmorphone 1 MG/ML, 1ML INJ IV PRN (13:30)
[2020-12-22] MEDS ORDERED: METOCLOPRAMIDE 5 MG/ML, 2ML IV PRN (13:30)
[2020-12-22] MEDS ORDERED: LABETALOL 5MG/ML, 20ML IV PRN (13:30)
== END 2020-12-22 18:30 | disposition home or self-care (01) ==
LOC: ED 20:37 → INTOOBSV 12-22 01:31 → EDIP 12-22 01:31 → 4NW 12-22 01:43
PROVIDERS: ADMIT Family Medicine; ATTEND Hospitalist
DX: N13.2 Hydronephrosis with renal and ureteral calculous obstruction (principal); Z20.822 Contact with and (suspected) exposure to COVID-19; N17.9 Acute kidney failure, unspecified; N23 Unspecified renal colic; Z85.028 Personal history of other malignant neoplasm of stomach; Z68.1 Body mass index [BMI] 19.9 or less, adult; Z88.0 Allergy status to penicillin; Z79.899 Other long term (current) drug therapy
CPT/HCPCS: 36415; 52353; 74177; 74420; 80053; 81001; 81025; 82360; 85025; 87086; 87635; 88300; 96361; 96365; 96372; 96375; 96376; 99285; C1769; G0378; J0330; J0690; J0696; J1170; J2250; J2270; J2405; J2550; J2704; J3010; J7030; Q9967; 96374